=== PATIENT | female | born 1980 | race Caucasian/White ===

== ENCOUNTER 2019-08-23 02:00 | Emergency (ER) ==
[2019-08-23 02:49] LABS: Absolute Lymphocytes (CBC) 2.3 K/uL (0.7-4.9); Basophils % 0.4 % (0-1.3); Hematocrit 34.6 % (36.0-45.0); Lymphocytes % 27.6 % (15.3-44.8); MPV 7.4 fL (7.6-11.3); RBC Red Blood Cell Count 3.69 M/uL (3.86-4.86)
[2019-08-23 02:52] LABS: Protime INR 1.02
[2019-08-23 03:02] LABS: ALT/SGPT 44 U/L (12-78); Albumin 3.8 g/dL (3.4-5.0); Alkaline Phosphatase 64 U/L (45-117); BUN Blood Urea Nitrogen 8 mg/dL (7-18); Bicarbonate 24 mmol/L (21-32); Bilirubin Direct 0.1 mg/dL (0-0.2); Bilirubin Total 0.4 mg/dL (0.2-1.0); Glucose Level 93 mg/dL (74-106); Sodium Level 139 mmol/L (136-145)
[2019-08-23 03:04] LABS: AST/SGOT 28 U/L (15-37); Potassium 3.7 mmol/L (3.5-5.1)
[2019-08-23 05:52] LABS: Barbiturates NEGATIVE (NEGATIVE); Benzodiazepines NEGATIVE (NEGATIVE); Cocaine NEGATIVE (NEGATIVE); METHAMPHETAM POSITIVE (NEGATIVE); Methadone NEGATIVE (NEGATIVE); Opiates NEGATIVE (NEGATIVE); Phencyclidine NEGATIVE (NEGATIVE); THC Cannibis NEGATIVE (NEGATIVE)
--- NOTE | 2019-08-23 05:59 | ER ---
Nurse's Notes [facility] Name: Gypsy Palomares Age: 39 yrs Sex: Female : 1980 Arrival Date: 08/23/2019 Time: 02:09 Bed 17 Private MD: Diagnosis: Adverse effect of amphetamines Presentation: 08/23 02:09 Presenting complaint: Patient states: pt swallowed meth tonight. Reports that it wasn't tl2 a larger dose than she has taken before but it has been several years since the last use. Pt reports feeling like her "throat was closing and she couldn't breathe" No evidence of anaphylaxis at this time, airway is unobstructed. Pt denies SI. Pt is AOx3 and cooperative in triage. Transition of care: patient was not received from another setting of care. Onset of symptoms was August 23, 2019. Risk Assessment: Do you want to hurt yourself or someone else? Patient reports no desire to harm self or others. Initial Sepsis Screen: Does the patient meet any 2 criteria? No. Patient's initial sepsis screen is negative. Does the patient have a suspected source of infection? No. Patient's initial sepsis screen is negative. 02:09 Method Of Arrival: EMS: [facility] tl2 02:09 Acuity: MOMO 2 tl2 02:15 Care prior to arrival: IV initiated. 22 GA, in the right hand. tl2 Triage Assessment: 02:13 General: Appears in no apparent distress. uncomfortable, Behavior is cooperative, tl2 restless. Pain: Denies pain. Neuro: Level of Consciousness is awake, alert, obeys commands, Oriented to person, place, time, situation, Speech is normal. Cardiovascular: Denies chest pain. Respiratory: Airway is patent Respiratory effort is even, unlabored, Respiratory pattern is regular, symmetrical. GI: Reports nausea. Derm: Skin is pink, warm \\T\\ dry. Historical: - Allergies: 02:13 PENICILLINS; tl2 - Home Meds: 02:13 None [Active]; tl2 - PMHx: 02:13 cyst on brain; Endometrosis; tl2 - Immunization history:: Adult Immunizations up to date. - Social history:: Smoking status: Patient uses tobacco products, smokes two packs cigarettes per day. Patient uses street drugs, Methamphetamine (Meth). - Ebola Screening: : No symptoms or risks identified at this time. Screenin:16 Abuse screen: Denies threats or abuse. Nutritional screening: No deficits noted. tl2 Tuberculosis screening: No symptoms or risk factors identified. Fall Risk None identified. Assessment: 02:38 General: see triage assessment. tl2 03:22 Reassessment: pt becoming agitated. Awaiting lab results and further orders. tl2 04:50 Reassessment: Patient appears in no apparent distress at this time. Patient and/or family updated on plan of care and expected duration. Pain level reassessed. Patient is alert, oriented x 3, equal unlabored respirations, skin warm/dry/pink. 06:06 Reassessment: Patient appears in no apparent distress at this time. No changes from previously documented assessment. Patient and/or family updated on plan of care and expected duration. Pain level reassessed. Patient is alert, oriented x 3, equal unlabored respirations, skin warm/dry/pink. Vital Signs: 02:13 BP 122 / 87; Pulse 81; Resp 18; Temp 98.7; Pulse Ox 100% ; Weight 72.57 kg; Height 5 tl2 ft. 5 in. (165.10 cm); Pain 0/10; 03:22 BP 137 / 92; Pulse 101; Resp 22; Pulse Ox 100% on R/A; tl2 04:25 Pulse 101; Resp 20; Pulse Ox 98% on R/A; tl2 06:00 BP 128 / 86; Pulse 96; Resp 18; Pulse Ox 99% on R/A; wh 02:13 Body Mass Index 26.63 (72.57 kg, 165.10 cm) tl2 ED Course: 02:09 Patient arrived in ED. tl2 02:09 Boyd Gomez MD is Attending Physician. tw4 02:11 Triage completed. tl2 02:13 Arm band placed on right wrist. EKG completed in triage. Results shown to MD. tl2 02:16 Patient has correct armband on for positive identification. Placed in gown. Bed in low tl2 position. Call light in reach. Side rails up X2. 02:16 Maintain EMS IV. Dressing intact. Good blood return noted. Site clean \\T\\ dry. Gauge \\T\\ tl 2 site: 22 g R hand. 02:17 Ortiz, Padmini, RN is Primary Nurse. tl2 06:07 No provider procedures requiring assistance completed. IV discontinued, intact, bleeding controlled, No redness/swelling at site. Administered Medications: No medications were administered Outcome: 05:58 Discharge ordered by . tw4 06:08 Discharged to home ambulatory, with friend. 06:08 Condition: stable 06:08 Discharge instructions given to patient, family, Instructed on discharge instructions, follow up and referral plans. POC Demonstrated understanding of instructions, follow-up care, POC 06:09 Patient left the ED. Signatures: Padmini Ortiz RN RN tl2 Anette Shrestha Boyd Gomez MD MD tw4 Corrections: (The following items were deleted from the chart) 02:16 02:09 Care prior to arrival: None. tl2 tl2 03:34 03:22 Pulse 101bpm; Resp 22bpm; Pulse Ox 100% RA; tl2 tl2
--- NOTE | 2019-08-23 05:59 | EDPHYS ---
Physician Documentation [facility] Name: Gypsy Palomares Age: 39 yrs Sex: Female : 1980 Arrival Date: 08/23/2019 Time: 02:09 Bed 17 Private MD: ED Physician Boyd Gomez HPI: 08/23 02:33 This 39 yrs old Female presents to ER via EMS with complaints of Drug Abuse. tw4 02:33 The patient presents to the emergency department with DRUG INGESTION. Onset: The tw4 symptoms/episode began/occurred today. Associated signs and symptoms: The patient has no apparent associated signs or symptoms. The patient has not experienced similar symptoms in the past. Historical: - Allergies: 02:13 PENICILLINS; tl2 - Home Meds: 02:13 None [Active]; tl2 - PMHx: 02:13 cyst on brain; Endometrosis; tl2 - Immunization history:: Adult Immunizations up to date. - Social history:: Smoking status: Patient uses tobacco products, smokes two packs cigarettes per day. Patient uses street drugs, Methamphetamine (Meth). - Ebola Screening: : No symptoms or risks identified at this time. ROS: 02:37 Constitutional: Negative for fever, chills, and weight loss, Eyes: Negative for injury, tw4 pain, redness, and discharge, Cardiovascular: Negative for chest pain, palpitations, and edema, Respiratory: Negative for shortness of breath, cough, wheezing, and pleuritic chest pain, Abdomen/GI: Negative for abdominal pain, nausea, vomiting, diarrhea, and constipation, Back: Negative for injury and pain, MS/Extremity: Negative for injury and deformity, Skin: Negative for injury, rash, and discoloration, Neuro: Negative for headache, weakness, numbness, tingling, and seizure. Exam: 02:37 Constitutional: This is a well developed, well nourished patient who is awake, alert, tw4 and in no acute distress. Head/Face: Normocephalic, atraumatic. Chest/axilla: Normal chest wall appearance and motion. Nontender with no deformity. No lesions are appreciated. Cardiovascular: Regular rate and rhythm with a normal S1 and S2. No gallops, murmurs, or rubs. Normal PMI, no JVD. No pulse deficits. Respiratory: Lungs have equal breath sounds bilaterally, clear to auscultation and percussion. No rales, rhonchi or wheezes noted. No increased work of breathing, no retractions or nasal flaring. Abdomen/GI: Soft, non-tender, with normal bowel sounds. No distension or tympany. No guarding or rebound. No evidence of tenderness throughout. Back: No spinal tenderness. No costovertebral tenderness. Full range of motion. MS/ Extremity: Pulses equal, no cyanosis. Neurovascular intact. Full, normal range of motion. Neuro: Awake and alert, GCS 15, oriented to person, place, time, and situation. Cranial nerves II-XII grossly intact. Motor strength 5/5 in all extremities. Sensory grossly intact. Cerebellar exam normal. Normal gait. Vital Signs: 02:13 BP 122 / 87; Pulse 81; Resp 18; Temp 98.7; Pulse Ox 100% ; Weight 72.57 kg; Height 5 tl2 ft. 5 in. (165.10 cm); Pain 0/10; 03:22 BP 137 / 92; Pulse 101; Resp 22; Pulse Ox 100% on R/A; tl2 04:25 Pulse 101; Resp 20; Pulse Ox 98% on R/A; tl2 06:00 BP 128 / 86; Pulse 96; Resp 18; Pulse Ox 99% on R/A; wh 02:13 Body Mass Index 26.63 (72.57 kg, 165.10 cm) tl2 MDM: 02:09 Patient medically screened. 08/23 02:12 Order name: Acetaminophen; Complete Time: 04:22 08/23 04:22 Interpretation: Normal except: ACETA < 2.0. 08/23 02:12 Order name: Basic Metabolic Panel; Complete Time: 04:22 08/23 04:22 Interpretation: Normal except: CL 108. 08/23 02:12 Order name: CBC with Diff; Complete Time: 04:22 08/23 04:22 Interpretation: Normal except: RBC 3.69; HGB 11.7; HCT 34.6; MPV 7.4. 08/23 02:12 Order name: ETOH Level; Complete Time: 04:22 08/23 04:23 Interpretation: Within normal limits: ETOH < 3. 08/23 02:12 Order name: Hepatic Function; Complete Time: 04:22 08/23 04:23 Interpretation: Normal except: GLOB 4.2; A/G 0.9. 08/23 02:12 Order name: PT-INR; Complete Time: 04:22 08/23 04:23 Interpretation: Within normal limits: PT 12.0. 08/23 02:12 Order name: Ptt, Activated; Complete Time: 04:22 08/23 04:23 Interpretation: Within normal limits: PTT 36.7. 08/23 02:12 Order name: Salicylate; Complete Time: 04:22 08/23 04:23 Interpretation: Within normal limits: TL 5.2. 08/23 02:12 Order name: Urine Drug Screen; Complete Time: 05:56 08/23 05:56 Interpretation: Abnormal: METHAMPHETAMINE POSITIVE. 08/23 02:12 Order name: IV Saline Lock; Complete Time: 02:18 08/23 02:12 Order name: Labs collected and sent; Complete Time: 02:18 08/23 02:12 Order name: Urine Dipstick-Ancillary (obtain specimen); Complete Time: 05:47 tw4 Administered Medications: No medications were administered Disposition: 08/23/19 05:58 Discharged to Home. Impression: Adverse effect of amphetamines. - Condition is Stable. - Discharge Instructions: Stimulant Use Disorder-Methamphetamines. - Medication Reconciliation Form, Thank You Letter, Antibiotic Education, Prescription Opioid Use form. - Follow up: Private Physician; When: Upon discharge from the Emergency Department; Reason: Recheck today's complaints, Continuance of care. - Problem is new. - Symptoms have improved. Signatures: Dispatcher [employer] EDMO Padmini Ortiz RN RN tl2 Anette Shrestha Terrence, MD MD tw4 Corrections: (The following items were deleted from the chart) 06:09 05:58 08/23/2019 05:58 Discharged to Home. Impression: Adverse effect of amphetamines. wh Condition is Stable. Forms are Medication Reconciliation Form, Thank You Letter, Antibiotic Education, Prescription Opioid Use. Follow up: Private Physician; When: Upon discharge from the Emergency Department; Reason: Recheck today's complaints, Continuance of care. Problem is new. Symptoms have improved. tw4
--- NOTE | 2019-08-25 10:21 | EKG ---
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
== END 2019-08-23 06:09 | disposition home or self-care (01) ==
LOC: ER 02:00
DX: R06.02 Shortness of breath (principal); T43.625A Adverse effect of amphetamines, initial encounter; F17.210 Nicotine dependence, cigarettes, uncomplicated; Z88.0 Allergy status to penicillin
CPT/HCPCS: 36415; 80048; 80076; 80307; 80320; 80329; 85025; 85610; 85730; 93005; 99283

== ENCOUNTER 2020-01-10 13:50 | Emergency (ER) | payer SELFPAY ==
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
[2020-01-10 14:41] VITALS: BP 121/74; TEMP 97.3; O2SAT 97
== END 2020-01-10 14:36 | disposition home or self-care (01) ==
LOC: ER 13:50
DX: S20.221A Contusion of right back wall of thorax, initial encounter (principal); W50.0XXA Accidental hit or strike by another person, initial encounter; Y93.89 Activity, other specified; Y92.9 Unspecified place or not applicable; F17.210 Nicotine dependence, cigarettes, uncomplicated; Z88.0 Allergy status to penicillin
CPT/HCPCS: 99281

== ENCOUNTER 2020-03-08 14:17 | Emergency (ER) | payer SELFPAY ==
[2020-03-08] MEDS ORDERED: IBUPROFEN 400 MG TAB ONE (16:10)
[2020-03-08] MEDS ORDERED: HYDROCODONE/APAP 5/325 MG TAB ONE (16:10)
[2020-03-08] MEDS ORDERED: TETANUS & DIPHTHERIA TOX,ADULT 0.5 ML VIAL ONE (16:16)
--- NOTE | 2020-03-08 17:07 | EDPHYS ---
Physician Documentation [facility] Name: Gypsy Palomares Age: 39 yrs Sex: Female : 1980 Arrival Date: 03/08/2020 Time: 14:23 Bed 10 Private MD: Timi Hartman HPI: 03/08 15:51 This 39 yrs old Female presents to ER via Ambulatory with complaints of Wound cp Infection. Historical: - Allergies: 14:46 PENICILLINS; ll1 - PMHx: 14:46 cyst on brain; Endometrosis; Hepatitis C; ll1 - PSHx: 14:46 Tubal ligation; ll1 - Immunization history:: Flu vaccine is not up to date. - Social history:: Smoking status: Patient reports the use of cigarette tobacco products, smokes one-half pack cigarettes per day, Patient uses alcohol, admits to "couple of beers" a day. Patient/guardian denies using street drugs. ROS: 16:00 Constitutional: Negative for body aches, chills, fever. cp 16:00 Cardiovascular: Negative for chest pain. cp 16:00 Respiratory: Negative for cough, shortness of breath. 16:00 Abdomen/GI: Negative for abdominal pain. 16:00 MS/extremity: Positive for erythema, pain, swelling, tenderness, of the left great toe, Negative for paresthesias. 16:00 All other systems are negative. Exam: 16:05 Constitutional: The patient appears in no acute distress, alert, awake, non-toxic, well cp developed, well nourished. 16:05 Musculoskeletal/extremity: Extremities: grossly normal except: noted in the left great cp toe: erythema, pain, swelling, tenderness, noted superficial wound tip of left great toe with scant colored drainage, ROM: limited passive range of motion due to pain, in the left great toe, Perfusion: the extremity is normally perfused throughout, Sensation intact. Nails: intact left foot. 16:05 Skin: cellulitis, that is moderate, on the left great toe. Vital Signs: 14:47 BP 113 / 87; Pulse 89; Resp 17; Temp 98.1; Pulse Ox 97% ; Pain 7/10; ll1 MDM: 15:47 Patient medically screened. cp 16:00 Differential diagnosis: dislocation, open fracture, closed fracture, contusion, cp abrasion, cellulitis, abscess. 17:05 Data reviewed: vital signs, nurses notes, radiologic studies, plain films. 17:05 Test interpretation: by ED physician or midlevel provider: xrays of left foot negative cp for fracture. Counseling: I had a detailed discussion with the patient and/or guardian regarding: the historical points, exam findings, and any diagnostic results supporting the discharge/admit diagnosis, radiology results, the need for outpatient follow up, a family practitioner, to return to the emergency department if symptoms worsen or persist or if there are any questions or concerns that arise at home. Response to treatment: the patient's symptoms have mildly improved after treatment, and as a result, I will discharge patient. 03/08 15:51 Order name: XRAY Foot LEFT 3 View; Complete Time: 17:36 03/08 17:36 Interpretation: Reviewed report. 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 Exp: ss 10/10/2021. Lot #: [id number]. } Route: IM; Site: left deltoid; 17:11 Follow up: Response: No adverse reaction Disposition: 17:20 Chart complete. 03/09 05:46 Co-signature as Attending Physician, Timi Goldman MD I agree with the assessment and conrad plan of care. Disposition: 03/08/20 17:06 Discharged to Home. Impression: Cellulitis of left lower limb - left great toe. - Condition is Stable. - Discharge Instructions: Cellulitis, Adult. - Prescriptions for Clindamycin HCl 300 mg Oral Capsule - take 1 capsule by ORAL route every 6 hours for 10 days; 40 capsule. Tylenol- Codeine #3 300-30 mg Oral Tablet - take 2 tablets by ORAL route every 6 hours As needed; 15 tablet. Bactrim DS 800- 160 mg Oral Tablet - take 1 tablet by ORAL route every 12 hours for 10 days; 20 tablet. Naprosyn 500 mg Oral Tablet - take 1 tablet by ORAL route 2 times per day take with food; 20 tablet. - Work release form, Medication Reconciliation Form, Thank You Letter, Antibiotic Education, Prescription Opioid Use form. - Follow up: Private Physician; When: 2 - 3 days; Reason: Wound Recheck. - Problem is new. - Symptoms have improved. Signatures: Dispatcher [employer] EDMS Timi Goldman MD MD cha Smirch, Shelby, RN RN ss Timi Dyson PA PA cp Shanel Rizvi RN RN ll1 Corrections: (The following items were deleted from the chart) 03/08 17:39 17:06 03/08/2020 17:06 Discharged to Home. Impression: Cellulitis of left lower limb - ss left great toe. Condition is Stable. Forms are Medication Reconciliation Form, Thank You Letter, Antibiotic Education, Prescription Opioid Use. Follow up: Private Physician; When: 2 - 3 days; Reason: Wound Recheck. Problem is new. Symptoms have improved. cp
--- NOTE | 2020-03-08 17:07 | ER ---
Nurse's Notes [facility] Name: Gypsy Palomares Age: 39 yrs Sex: Female : 1980 Arrival Date: 03/08/2020 Time: 14:23 Bed 10 Private MD: Diagnosis: Cellulitis of left lower limb-left great toe Presentation: 03/08 14:47 Chief complaint: Patient states: Hit left foot 1st toe on concrete during incident with ll1 her dog Sunday. Abrasion to end of toe. Hit toe again today while driving. + pain and swelling. Coronavirus screen: Proceed with normal triage. Patient denies a cough. Patient denies shortness of breath or difficulty breathing. Patient denies measured and/or subjective temperature greater than 100.4F prior to today's visit. Patient denies travel on a cruise ship or to a country the [facility] currently lists as an affected area. Patient denies contact with known and/or suspected case of COVID-19. Ebola Screen: Patient denies travel to an Ebola-affected area in the 21 days before illness onset. Initial Sepsis Screen: Does the patient meet any 2 criteria? No. Patient's initial sepsis screen is negative. Does the patient have a suspected source of infection? Yes: Skin breakdown/wound. Risk Assessment: Do you want to hurt yourself or someone else? Patient reports no desire to harm self or others. Onset of symptoms was March 05, 2020. 14:47 Method Of Arrival: Ambulatory ll1 14:47 Acuity: MOMO 4 ll1 Historical: - Allergies: 14:46 PENICILLINS; ll1 - PMHx: 14:46 cyst on brain; Endometrosis; Hepatitis C; ll1 - PSHx: 14:46 Tubal ligation; ll1 - Immunization history:: Flu vaccine is not up to date. - Social history:: Smoking status: Patient reports the use of cigarette tobacco products, smokes one-half pack cigarettes per day, Patient uses alcohol, admits to "couple of beers" a day. Patient/guardian denies using street drugs. Screenin:43 Abuse screen: Denies threats or abuse. Denies injuries from another. Nutritional ss screening: No deficits noted. Tuberculosis screening: Never had TB. Fall Risk None identified. Assessment: 15:43 General: Appears in no apparent distress. comfortable, Behavior is calm, cooperative. ss Pain: Complains of pain in Left first toenail Pain currently is 7 out of 10 on a pain scale. Quality of pain is described as tender, Is continuous. Neuro: Level of Consciousness is awake, alert, obeys commands, Oriented to person, place, time, situation. Cardiovascular: Capillary refill < 3 seconds is brisk in bilateral fingers. Respiratory: Airway is patent Respiratory effort is even, unlabored, Respiratory pattern is regular, symmetrical. EENT: Nares are clear. Derm: Skin is intact, is healthy with good turgor, Skin is pink, warm \\T\\ dry. normal. Musculoskeletal: Circulation, motion, and sensation intact. Range of motion: intact in all extremities, Swelling mild swelling noted to affected area. 15:46 Injury Description: Abrasion sustained to Left first toenail is scabbed. ss Vital Signs: 14:47 BP 113 / 87; Pulse 89; Resp 17; Temp 98.1; Pulse Ox 97% ; Pain 7/10; ll1 ED Course: 14:23 Patient arrived in ED. mr 14:47 Arm band placed on Patient notified of wait time. ll1 14:49 Triage completed. ll1 15:41 Timi Dyson PA is PHCP. cp 15:41 Timi Goldman MD is Attending Physician. cp 15:43 Eveline Velarde, CRISTIANO is Primary Nurse. ss 15:43 Patient has correct armband on for positive identification. Bed in low position. Call ss light in reach. 17:11 XRAY Foot LEFT 3 View In Process Unspecified. EDMS 17:37 No provider procedures requiring assistance completed. Patient did not have IV access ss during this emergency room visit. cleansed wound with Hibiclens and saline. Dressed with kerlix, 4x4 and antibiotic ointment. Administered Medications: 16:03 Drug: HYDROcodone-acetaminophen 5 mg-325 mg 1 tabs Route: Feeding Tube; ss 16:03 Drug: Ibuprofen 800 mg Route: PO; ss 17:26 Follow up: Response: No adverse reaction ss 16:21 Drug: Tetanus-Diphtheria Toxoid Adult 0.5 ml {[employer] Expert: [employer]. Exp: ss 10/10/2021. Lot #: [id number]. } Route: IM; Site: left deltoid; 17:11 Follow up: Response: No adverse reaction ss Outcome: 17:06 Discharge ordered by . sol 17:37 Discharged to home ambulatory. ss 17:37 Condition: good 17:37 Discharge instructions given to patient, Instructed on discharge instructions, follow up and referral plans. medication usage, crutch walking, wound care, Demonstrated understanding of instructions, follow-up care, medications, crutch walking, Prescriptions given X 4. 17:39 Patient left the ED. ss Signatures: Dispatcher [employer] EDMN CisnerosReshma rice Shelby RN RN ss Timi Dyson PA PA cp Lewis, Lynsay, RN RN ll1
--- NOTE | 2020-03-08 17:20 | RAD REPORT ---
EXAM DESCRIPTION: RAD - Foot Left 3 View - 03/08/2020 5:11 pm CLINICAL HISTORY: left great toe pain Pain and swelling. COMPARISON: No comparisons FINDINGS: Moderate soft tissue swelling is seen about the great toe. No evidence of fracture.
[2020-03-08 18:02] VITALS: BP 113/87; TEMP 98.1; O2SAT 97
== END 2020-03-08 17:39 | disposition home or self-care (01) ==
LOC: ER 14:17
DX: L03.032 Cellulitis of left toe (principal); Z88.0 Allergy status to penicillin; Z23 Encounter for immunization
CPT/HCPCS: 90471; 90714; 99284

== ENCOUNTER 2020-03-16 15:24 | Emergency (ER) | payer SELFPAY ==
[2020-03-16] MEDS ORDERED: HYDROCODONE/APAP 10/325 TAB ONE (18:05)
[2020-03-16] MEDS ORDERED: LIDOCAINE 1% 20 ML MDV ONE (18:05)
[2020-03-16] MEDS ORDERED: DIAZEPAM 5 MG TABLET ONE (18:05)
[2020-03-16] MEDS ORDERED: BUPIVACAINE 0.5% PF 10 ML VIAL ONE (18:05)
--- NOTE | 2020-03-16 19:14 | ER ---
Nurse's Notes [facility] Name: Gypsy Palomares Age: 39 yrs Sex: Female : 1980 Arrival Date: 03/16/2020 Time: 15:28 Bed 16 Private MD: Diagnosis: Cellulitis of the left great toe Presentation: 03/16 15:39 Chief complaint: Patient states: L toe wound, seen and prescribed abx here in the ER. ca1 Reports regular wound care and compliance with abx treatment. Reports wound still bleeds when it hurts something and putting too much pressure on it and I can't put shoes on it. States, "I need a work note, or my boss will fire me". Coronavirus screen: Patient denies a cough. Patient denies shortness of breath or difficulty breathing. Patient denies measured and/or subjective temperature greater than 100.4F prior to today's visit. Patient denies travel on a cruise ship or to a country the [facility] currently lists as an affected area. Patient denies contact with known and/or suspected case of COVID-19. Proceed with normal triage. Ebola Screen: Patient negative for fever greater than or equal to 101.5 degrees Fahrenheit, and additional compatible Ebola Virus Disease symptoms Patient denies exposure to infectious person. Patient denies travel to an Ebola-affected area in the 21 days before illness onset. No symptoms or risks identified at this time. Initial Sepsis Screen: Does the patient meet any 2 criteria? No. Patient's initial sepsis screen is negative. Does the patient have a suspected source of infection? No. Patient's initial sepsis screen is negative. Risk Assessment: Do you want to hurt yourself or someone else? Patient reports no desire to harm self or others. Onset of symptoms was March 16, 2020. 15:39 Method Of Arrival: Ambulatory ca1 15:39 Acuity: MOMO 5 ca1 Triage Assessment: 16:49 General: Appears in no apparent distress. uncomfortable, Behavior is calm, cooperative. ks7 Pain: Complains of pain in left foot Pain currently is 7 out of 10 on a pain scale. Quality of pain is described as sharp. 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 - Social history:: Smoking status: Patient reports the use of cigarette tobacco products, smokes one-half pack cigarettes per day. Screenin:49 Abuse screen: Denies threats or abuse. Denies injuries from another. Nutritional ks7 screening: No deficits noted. Tuberculosis screening: No symptoms or risk factors identified. Fall Risk None identified. Assessment: 16:49 General: pt c/o pain to L toe, from non-healing chronic wound. . ks7 Vital Signs: 15:39 BP 112 / 74; Pulse 96; Resp 15 S; Temp 97.2(TE); Pulse Ox 99% on R/A; Weight 74.84 kg ca1 (R); Height 5 ft. 4 in. (162.56 cm) (R); 18:01 BP 106 / 64; Pulse 70; Resp 18; Pulse Ox 100% ; Pain 8/10; ks7 19:19 BP 106 / 77; Pulse 83; Resp 18; Temp 97.9; Pulse Ox 100% on R/A; Pain 0/10; ks7 19:20 Pain 0/10; ks7 19:20 Pain 0/10; ks7 19:20 Pain 0/10; ks7 19:20 Pain 0/10; ks7 15:39 Body Mass Index 28.32 (74.84 kg, 162.56 cm) ca1 ED Course: 15:28 Patient arrived in ED. mr 15:45 Triage completed. ca1 15:46 Arm band placed on right wrist. ca1 16:33 Marvel Krishnan PA is PHCP. [facility] 16:33 Jareth Tran MD is Attending Physician. [facility] 16:48 Taylor Dominique, CRISTIANO is Primary Nurse. ks7 16:49 Patient has correct armband on for positive identification. Bed in low position. Call ks7 light in reach. Side rails up X2. 16:49 No provider procedures requiring assistance completed. Patient did not have IV access ks7 during this emergency room visit. 18:19 Nurse Practitioner and/or Physician Clerk General Office to see patient. at bedside performing I \\T\\ ks7 D?. 19:13 Juan Azul MD is Referral Physician. [facility] 19:14 No provider procedures requiring assistance completed. Assist provider with nail repair ks7 of left great toe Patient tolerated. 19:21 Dressings: Band aid x 1 left foot and Left first toenail non-adherent dressing x 1 left ks7 foot and Left first toenail. Administered Medications: 17:45 Drug: Lidocaine (1 %) 20 ml {Note: administered by Marvel MORENO.} Volume: 20 ml; Route: ks7 Infiltration; 19:20 Follow up: Pain 0/10 Adult ks7 17:45 Drug: Marcaine (0.5 %) 10 ml {Note: given by JOSH Grier.} Volume: 10 ml; Route: ks7 Infiltration; 19:20 Follow up: Pain 0/10 Adult ks7 17:58 Drug: Valium 5 mg Route: PO; ks7 19:20 Follow up: Pain 0/10 Adult ks7 17:59 Drug: [place] 10 mg-325 mg 1 tabs Route: PO; ks7 19:20 Follow up: Pain 0/10 Adult ks7 Outcome: 19:14 Discharge ordered by MD. crowe 19:31 Discharged to home ambulatory. ks7 19:31 Condition: good 19:31 Discharge instructions given to patient, Instructed on discharge instructions, medication usage, Demonstrated understanding of instructions, medications. 19:34 Patient left the ED. ks7 Signatures: Marvel Krishnan PA PA jmm Blayne Roslyn Murillo, RN Taylor Turner RN RN ks7
--- NOTE | 2020-03-16 19:14 | EDPHYS ---
Physician Documentation [facility] Name: Gypsy Palomares Age: 39 yrs Sex: Female : 1980 Arrival Date: 03/16/2020 Time: 15:28 Bed 16 Private MD: ED Physician Jareth Tran HPI: 03/16 16:56 This 39 yrs old Female presents to ER via Ambulatory with complaints of Wound jmm Check. 16:56 Patient presents to ED for recheck of: cellulitis. The affected area is on the Left jmm first toenail. This is a 39 year old female with a history of hep c that presents to the ED with complaints of swelling to the left great toe. patient states she was bitten by a dog approx 2 weeks ago and seen in the ED approx 1 week ago. Discharged with abx. Patient states swelling has decreased bu the wound has continues to drain. . 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 - Social history:: Smoking status: Patient reports the use of cigarette tobacco products, smokes one-half pack cigarettes per day. ROS: 16:56 Constitutional: Negative for fever, chills, and weight loss, Cardiovascular: Negative jmm for chest pain, palpitations, and edema, Respiratory: Negative for shortness of breath, cough, wheezing, and pleuritic chest pain. 16:56 Skin: Positive for erythema. 16:56 All other systems are negative. Exam: 16:56 Constitutional: This is a well developed, well nourished patient who is awake, alert, jmm and in no acute distress. Head/Face: atraumatic. Eyes: EOMI, no conjunctival erythema appreciated ENT: Moist Mucus Membranes Neck: Trachea midline, Supple Chest/axilla: Normal chest wall appearance and motion. Cardiovascular: Regular rate and rhythm. No edema appreciated Respiratory: Normal respirations, no respiratory distress appreciated Abdomen/GI: Non distended, soft Back: Normal ROM 16:56 Skin: erythema noted to the left great toe surrounding the nail plate. no purulent drainage appreciated. 16:56 Neuro: Orientation: is normal, Mentation: is normal, Memory: is normal. 16:56 Psych: Behavior/mood is pleasant, cooperative. Vital Signs: 15:39 BP 112 / 74; Pulse 96; Resp 15 S; Temp 97.2(TE); Pulse Ox 99% on R/A; Weight 74.84 kg ca1 (R); Height 5 ft. 4 in. (162.56 cm) (R); 18:01 BP 106 / 64; Pulse 70; Resp 18; Pulse Ox 100% ; Pain 8/10; ks7 19:19 BP 106 / 77; Pulse 83; Resp 18; Temp 97.9; Pulse Ox 100% on R/A; Pain 0/10; ks7 19:20 Pain 0/10; ks7 19:20 Pain 0/10; ks7 19:20 Pain 0/10; ks7 19:20 Pain 0/10; ks7 15:39 Body Mass Index 28.32 (74.84 kg, 162.56 cm) ca1 Procedures: 19:10 Performed Nail removal. The base of the great toe was cleaned with betadine. 5 ml of [facility] marcaine 0.5%/lidocaine 1% was injected at the base of the toe and distributed bilaterally. Scissors and hemostat used to partially remove the nail plate. No, puraulent drainage appreciated. Patient tolerated the procedure well. . MDM: 16:38 Patient medically screened. [facility] 19:10 Data reviewed: vital signs, nurses notes. Counseling: I had a detailed discussion with [facility] the patient and/or guardian regarding: the historical points, exam findings, and any diagnostic results supporting the discharge/admit diagnosis, the need for outpatient follow up, to return to the emergency department if symptoms worsen or persist or if there are any questions or concerns that arise at home. ED course: Patient advised to follow up with gen surgery for wound care. Patient is otherwise advised to return to the ED. Patient is otherwise given strict return precautions. Patient understood and agrees with the plan of care. . 03/16 19:06 Order name: Wound Care; Complete Time: 19:22 [facility] Administered Medications: 17:45 Drug: Lidocaine (1 %) 20 ml {Note: administered by Marvel BECERRIL} Volume: 20 ml; Route: ks7 Infiltration; 19:20 Follow up: Pain 0/10 Adult ks7 17:45 Drug: Marcaine (0.5 %) 10 ml {Note: given by JOSH Grier.} Volume: 10 ml; Route: ks7 Infiltration; 19:20 Follow up: Pain 0/10 Adult ks7 17:58 Drug: Valium 5 mg Route: PO; ks7 19:20 Follow up: Pain 0/10 Adult ks7 17:59 Drug: [place] 10 mg-325 mg 1 tabs Route: PO; ks7 19:20 Follow up: Pain 0/10 Adult ks7 Disposition: 03/17 08:29 Co-signature as Attending Physician, Jareth Tran MD. rn Disposition: 03/16/20 19:14 Discharged to Home. Impression: Cellulitis of the left great toe. - Condition is Stable. - Discharge Instructions: Fingernail or Toenail Removal, Adult, Fingernail or Toenail Removal, Care After. - Prescriptions for Ultracet 37.5- 325 mg Oral Tablet - take 1 tablet by ORAL route every 6 hours - for up to 5 days; do not exceed 8 tablets per day.; 20 tablet. - Medication Reconciliation Form, Thank You Letter, Antibiotic Education, Prescription Opioid Use, Work release form form. - Follow up: Juan Azul MD; When: 1 - 2 days; Reason: Recheck today's complaints, Continuance of care, Re-evaluation by your physician. Signatures: Marvel Krishnan PA PA jmm Nieto, Roman, MD MD rn Roslyn Correia RN RN ca1 Songcuan, Kathleen, RN RN ks7 Corrections: (The following items were deleted from the chart) 03/16 19:34 19:14 03/16/2020 19:14 Discharged to Home. Impression: Cellulitis of the left great ks7 toe. Condition is Stable. Forms are Medication Reconciliation Form, Thank You Letter, Antibiotic Education, Prescription Opioid Use. Follow up: Juan Azul; When: 1 - 2 days; Reason: Recheck today's complaints, Continuance of care, Re-evaluation by your physician. amrita
[2020-03-17 10:22] VITALS: O2SAT 100
[2020-03-17 10:23] VITALS: BP 106/77; TEMP 97.9
== END 2020-03-16 19:34 | disposition home or self-care (01) ==
LOC: ER 15:24
PROC: 0HBRXZZ Excision of Toe Nail, External Approach (ICD-10-PCS; principal; 2020-03-16)
DX: L03.032 Cellulitis of left toe (principal); F17.210 Nicotine dependence, cigarettes, uncomplicated; Z88.0 Allergy status to penicillin
CPT/HCPCS: 99283

== ENCOUNTER 2021-02-24 20:14 | Emergency (ER) | payer SELFPAY ==
[2021-02-24] MEDS ORDERED: WATER FOR INJ,STERILE 10 ML ONE (20:39)
[2021-02-24] MEDS ORDERED: ZIPRASIDONE MESYLA 20 MG/VIAL IM ONE (20:39)
[2021-02-24 21:37] LABS: Urine Blood Negative (Negative); Urine Glucose Negative (Negative); Urine Protein Negative (Negative)
[2021-02-24 22:00] LABS: Barbiturates NEGATIVE (NEGATIVE); Benzodiazepines NEGATIVE (NEGATIVE); Cocaine NEGATIVE (NEGATIVE); METHAMPHETAM POSITIVE (NEGATIVE); Methadone NEGATIVE (NEGATIVE); Opiates NEGATIVE (NEGATIVE); Phencyclidine NEGATIVE (NEGATIVE); THC Cannibis POSITIVE (NEGATIVE)
[2021-02-25 01:04] LABS: Absolute Lymphocytes (CBC) 2.7 K/uL (0.7-4.9); Hematocrit 41.8 % (36.0-45.0); Lymphocytes % 33.2 % (15.3-44.8); RBC Red Blood Cell Count 4.37 M/uL (3.86-4.86)
[2021-02-25 01:11] LABS: Protime INR 1.06
--- NOTE | 2021-02-25 01:13 | ER ---
Nurse's Notes [facility] Name: Gypsy Palomares Age: 40 yrs Sex: Female : 1980 Arrival Date: 02/24/2021 Time: 20:20 Bed 2 Private MD: Diagnosis: Laceration without foreign body of unspecified part of neck, initial encounter;Adverse effect of amphetamines Presentation: 02/24 20:20 Chief complaint: EMS states: PD called pt found outside on the ground , had knife in ea her hand cut her left arm and neck. Superficial dorantes noted on neck and left arm. EMS accompanied by PD. Coronavirus screen: At this time, the client does not indicate any symptoms associated with coronavirus-19. Ebola Screen: No symptoms or risks identified at this time. Initial Sepsis Screen: Does the patient meet any 2 criteria? No. Patient's initial sepsis screen is negative. Does the patient have a suspected source of infection? No. Patient's initial sepsis screen is negative. Risk Assessment: Do you want to hurt yourself or someone else? Patient reports desire/thoughts of hurting themselves or someone else. Provider notified. Onset of symptoms was February 24, 2021. 20:20 Method Of Arrival: EMS: [facility] ea 20:20 Acuity: MOMO 2 ea Historical: - Allergies: 22:44 PENICILLINS; ea - PMHx: 22:44 cyst on brain; Endometrosis; Hepatitis C; ea - Immunization history:: Adult Immunizations up to date. - Social history:: Smoking status: Patient denies any tobacco usage or history of. Screenin:00 Abuse screen: Denies threats or abuse. Nutritional screening: No deficits noted. ea Tuberculosis screening: No symptoms or risk factors identified. 21:00 Fall Risk None identified. ea Assessment: 20:20 General: Appears unkempt, Behavior is agitated, combative, restless, uncooperative. ea Neuro: Level of Consciousness is awake, alert, obeys commands, Oriented to person, place, time. Cardiovascular: Patient's skin is warm and dry. Respiratory: Airway is patent Respiratory effort is even, unlabored, Respiratory pattern is regular, symmetrical. Derm: Skin is pink, warm \\T\\ dry. 21:50 Reassessment: Patient and/or family updated on plan of care and expected duration. Pain ea level reassessed. Patient is alert, oriented x 3, equal unlabored respirations, skin warm/dry/pink. Pt resting with eyes closed, respirations even and unlabored. 23:30 Reassessment: Patient and/or family updated on plan of care and expected duration. Pain ea level reassessed. Patient is alert, oriented x 3, equal unlabored respirations, skin warm/dry/pink. 02/25 00:00 Reassessment: Pt resting with eyes closed, respirations even and unlabored. Chest ea expansions even and symmetrical. No s/s of pain or discomfort noted at this time. 01:00 Reassessment: Pt resting with eyes closed, respirations even and unlabored. Chest ea expansions even and symmetrical. No s/s of pain or discomfort noted at this time. 03:00 Reassessment: Pt resting with eyes closed, respirations even and unlabored. Chest ea expansions even and symmetrical. No s/s of pain or discomfort noted at this time. 06:03 Reassessment: Patient and/or family updated on plan of care and expected duration. Pain ea level reassessed. Patient is alert, oriented x 3, equal unlabored respirations, skin warm/dry/pink. 07:35 Reassessment: pt AOx3. pt asked if she remembers why she came in to the hospital and tr6 she states she was trying to commit suicide. pt denies any SI right now. General: Appears unkempt. Pain: Complains of pain in left arm Alleviated by rest. Neuro: Level of Consciousness is awake, alert, obeys commands, Oriented to person, place, time, situation, Gait is steady, Speech is normal. Cardiovascular: No deficits noted. Respiratory: No deficits noted. GI: No deficits noted. : No deficits noted. EENT: No deficits noted. Derm: Skin is pink, warm \\T\\ dry. Musculoskeletal: No deficits noted. 07:41 Reassessment: pts boyfriend called, with pts permission, to pick pt up. message left. tr6 RN will follow up. 09:17 Reassessment: pt at nursing station on phone with boyfriend attempting to get a ride tr6 home. Vital Signs: 02/24 20:20 BP 108 / 77; Pulse 94; Resp 20; Temp 97.6; Pulse Ox 96% on R/A; Weight 68.04 kg; Height ea 5 ft. 5 in. (165.10 cm); 02/25 01:00 BP 106 / 71; Pulse 60; Resp 18; Pulse Ox 98% ; ea 02:00 BP 100 / 63; Pulse 57; Resp 16; Pulse Ox 98% ; ea 05:00 BP 107 / 56; Pulse 60; Resp 16; Pulse Ox 99% on R/A; ea 06:05 BP 110 / 71; Pulse 55; Resp 16; Temp 98; Pulse Ox 99% on R/A; ea 06:47 BP 113 / 65; Pulse 66; Resp 15; Temp 98.4(O); Pulse Ox 98% ; Pain 0/10; bs2 07:30 BP 134 / 77; Pulse 87; Resp 13; Pulse Ox 99% on R/A; tr6 02/24 20:20 Body Mass Index 24.96 (68.04 kg, 165.10 cm) ea Logan Coma Score: 02/24 22:30 Eye Response: to voice(3). Verbal Response: confused(4). Motor Response: localizes jr8 pain(5). Total: 12. 02/25 01:09 Eye Response: spontaneous(4). Verbal Response: oriented(5). Motor Response: obeys jr8 commands(6). Total: 15. ED Course: 02/24 20:20 Patient arrived in ED. mw2 20:20 Jordna Shearer PA is PHCP. jr8 20:20 Jareth Tran MD is Attending Physician. jr8 20:40 Patient has correct armband on for positive identification. Bed in low position. Call ea light in reach. Side rails up X2. 21:00 Arm band placed on right wrist. Patient placed in an exam room, on a stretcher, on ea pulse oximetry. 22:43 Triage completed. ea 02/25 01:17 Alejandra Ortiz, CRISTIANO is Primary Nurse. ea 01:17 No provider procedures requiring assistance completed. ea 07:13 COVID-19 : Document "Date of Symptom Onset" if Symptomatic. Sent. sv 07:13 Urine --Ancillary (enter results) Sent. sv Administered Medications: 02/24 20:35 Drug: Geodon (ziprasidone) 10 mg Route: IM; Site: right gluteus; ea Outcome: 02/25 01:12 Discharge ordered by MD. carrero 01:17 Discharge instructions given to patient, Instructed on discharge instructions, follow ea up and referral plans. Demonstrated understanding of instructions, follow-up care. 11:17 Patient left the ED. sv Signatures: Michaela Rockwell, RN RN Jordan Leslie PA PA jr8 Antunez, Elena, RN RN ea [place], MyKena 2 Ava Jones RN RN hal6 [facility] bs2 Corrections: (The following items were deleted from the chart) 02/24 23:16 20:20 Acuity: MOMO 3 ea ea
--- NOTE | 2021-02-25 01:13 | EDPHYS ---
Physician Documentation [facility] Name: Gypsy Palomares Age: 40 yrs Sex: Female : 1980 Arrival Date: 02/24/2021 Time: 20:20 Bed 2 Private MD: ED Physician Jareth Tran HPI: 02/24 22:28 This 40 yrs old Female presents to ER via Unassigned with complaints of OD, jr8 SI. 22:28 The patient presents to the emergency department after a known overdose, a result of jr8 recreational substance abuse. Context: Method: it is confirmed or suspected that the patient injected a substance. Associated signs and symptoms: Pertinent positives: decreased level of consciousness. Severity of symptoms: At their worst the symptoms were moderate in the emergency department the symptoms are unchanged. It is unknown whether or not the patient has had similar symptoms in the past. It is unknown whether or not the patient has recently seen a physician. 22:29 EMS called out after patient was apprehended by police. Patient had superficially cut jr8 her neck in front of police saying she wanted to commit suicide. Stated that she had also injected unknown paraphernalia earlier today. Patient uncooperative upon arrival . Historical: - Allergies: 22:44 PENICILLINS; ea - PMHx: 22:44 cyst on brain; Endometrosis; Hepatitis C; ea - Immunization history:: Adult Immunizations up to date. - Social history:: Smoking status: Patient denies any tobacco usage or history of. ROS: 22:29 Unable to obtain ROS due to patient being uncooperative. jr8 Exam: 22:30 Head/Face: Normocephalic, atraumatic. Eyes: Pupils equal round and reactive to light, jr8 extra-ocular motions intact. Lids and lashes normal. Conjunctiva and sclera are non-icteric and not injected. Cornea within normal limits. Periorbital areas with no swelling, redness, or edema. ENT: Nares patent. No nasal discharge, no septal abnormalities noted. Oropharynx with no redness, swelling, or masses, exudates, or evidence of obstruction, uvula midline. Mucous membranes Dry Neck: Trachea midline, no thyromegaly or masses palpated, and no cervical lymphadenopathy. Supple, full range of motion without nuchal rigidity, or vertebral point tenderness. No Meningismus. Cardiovascular: Tachycardic a normal S1 and S2. No gallops, murmurs, or rubs. Normal PMI, no JVD. No pulse deficits. Respiratory: Lungs have equal breath sounds bilaterally, clear to auscultation and percussion. No rales, rhonchi or wheezes noted. No increased work of breathing, no retractions or nasal flaring. Abdomen/GI: Soft, non-tender, with normal bowel sounds. No distension or tympany. No guarding or rebound. No evidence of tenderness throughout. Skin: Warm, dry with normal turgor. Normal color with no rashes, no lesions, and no evidence of cellulitis. 3 cm laceration noted to left lateral neck MS/ Extremity: Pulses equal, no cyanosis. Neurovascular intact. Full, normal range of motion. 22:30 Neuro: Orientation: to person, Mentation: responsive to voice unable to follow commands, Memory: unable to test, Cranial nerves: extraocular movements are intact, Speech is clear and appropriate. Tongue strength is normal, Motor: moves all fours, Sensation: no obvious gross deficits, seizure activity, is not displayed by the patient, Abnormal movements: there are no abnormal movements. 02/25 01:09 Neuro: Awake and alert, GCS 15, oriented to person, place, time, and situation. jr8 Cranial nerves II-XII grossly intact. Motor strength 5/5 in all extremities. Sensory grossly intact. Cerebellar exam normal. Normal gait. Psych: Awake, alert, with orientation to person, place and time. Behavior, mood, and affect are within normal limits. Vital Signs: 02/24 20:20 BP 108 / 77; Pulse 94; Resp 20; Temp 97.6; Pulse Ox 96% on R/A; Weight 68.04 kg; Height ea 5 ft. 5 in. (165.10 cm); 02/25 01:00 BP 106 / 71; Pulse 60; Resp 18; Pulse Ox 98% ; ea 02:00 BP 100 / 63; Pulse 57; Resp 16; Pulse Ox 98% ; ea 05:00 BP 107 / 56; Pulse 60; Resp 16; Pulse Ox 99% on R/A; ea 06:05 BP 110 / 71; Pulse 55; Resp 16; Temp 98; Pulse Ox 99% on R/A; ea 06:47 BP 113 / 65; Pulse 66; Resp 15; Temp 98.4(O); Pulse Ox 98% ; Pain 0/10; bs2 07:30 BP 134 / 77; Pulse 87; Resp 13; Pulse Ox 99% on R/A; tr6 02/24 20:20 Body Mass Index 24.96 (68.04 kg, 165.10 cm) ea [place]con Coma Score: 02/24 22:30 Eye Response: to voice(3). Verbal Response: confused(4). Motor Response: localizes jr8 pain(5). Total: 12. 02/25 01:09 Eye Response: spontaneous(4). Verbal Response: oriented(5). Motor Response: obeys jr8 commands(6). Total: 15. Laceration: 01:09 Wound Repair of 3cm ( 1.2in ) subcutaneous laceration to neck. Linear shaped.. Minimal jr8 bleeding noted.. Distal neuro/vascular/tendon intact. Wound prep: Moderate cleansing with hibiclenz, Wound irrigation with saline, Copious irrigation. Skin closed with 1 thin layer Adhesive skin closure using Dermabond. Patient tolerated well. MDM: 02/24 20:20 Patient medically screened. 8 02/25 01:08 Data reviewed: vital signs, nurses notes, lab test result(s), EKG, and as a result, I [facility] will discharge patient. Data interpreted: Pulse oximetry: on room air is 96 %. Interpretation: normal. Counseling: I had a detailed discussion with the patient and/or guardian regarding: the historical points, exam findings, and any diagnostic results supporting the discharge/admit diagnosis, lab results. 01:09 ED course: Patient doing much better. A\\T\\O x4. GCS 15. Stated that she broke up with her jr8 boyfriend tonight causing her to have a breakdown. Has had this in past but never to this extent. Patient denies wanting to hurt herself or others. Patient can answer all questions appropriately and is of sound mind at this time. Safe to be discharged home and knows to call 911 or come back if she were to feel worse. 02/24 20:20 Order name: Acetaminophen; Complete Time: 13:11 jr8 02/24 20:20 Order name: Basic Metabolic Panel; Complete Time: 13:11 jr8 02/24 20:20 Order name: CBC with Diff; Complete Time: 13:11 02/24 20:20 Order name: ETOH Level; Complete Time: 22:08 02/24 20:20 Order name: Hepatic Function; Complete Time: 13:11 02/24 20:20 Order name: PT-INR; Complete Time: 13:11 02/24 20:20 Order name: Ptt, Activated; Complete Time: 13:11 02/24 20:20 Order name: Salicylate; Complete Time: 22:08 02/24 20:20 Order name: Urine Drug Screen; Complete Time: 22:30 02/24 21:31 Order name: COVID-19 : Document "Date of Symptom Onset" if Symptomatic. bb 02/24 21:37 Order name: Urine Dipstick-Ancillary; Complete Time: 22:08 EDUT 02/24 21:46 Order name: Urine --Ancillary (enter results) 2 02/24 21:46 Order name: Urine --Ancillary; Complete Time: 22:08 [facility] 02/24 20:20 Order name: EKG; Complete Time: 20:21 02/24 20:20 Order name: EKG - Nurse/Tech; Complete Time: 22:39 02/24 20:20 Order name: IV Saline Lock; Complete Time: 22:39 02/24 20:20 Order name: Labs collected and sent; Complete Time: 21:51 02/24 20:20 Order name: Suicide Precautions; Complete Time: 21:51 02/24 20:20 Order name: Suicide Screening ([place]); Complete Time: 09:47 02/24 20:20 Order name: Urine Dipstick-Ancillary (obtain specimen); Complete Time: 22:39 02/24 20:20 Order name: Urine Test (obtain specimen); Complete Time: 22:39 02/24 22:46 Order name: SARS-COV-2 RT PCR; Complete Time: 23:02 EDUT 02/25 01:05 Order name: CBC Smear Scan; Complete Time: 13:11 EDMS Administered Medications: 02/24 20:35 Drug: Geodon (ziprasidone) 10 mg Route: IM; Site: right gluteus; ea Disposition: 02/25 19:36 Co-signature as Attending Physician, Jareth Tran MD. rn Disposition Summary: 02/25/21 01:12 Discharge Ordered Location: Home jr8 Problem: new jr8 Symptoms: have improved jr8 Condition: Stable jr8 Diagnosis - Laceration without foreign body of unspecified part of neck, initial encounter jr8 - Adverse effect of amphetamines jr8 Followup: jr8 - With: Private Physician - When: 1 week - Reason: Wound Recheck, Recheck today's complaints, Continuance of care, Re-evaluation by your physician Discharge Instructions: - Discharge Summary Sheet jr8 - Sutures, [place], or Adhesive Wound Closure jr8 - Illegal Drug Use Information, Adult jr8 Forms: - Medication Reconciliation Form jr8 - Thank You Letter jr8 - Antibiotic Education jr8 - Prescription Opioid Use jr8 Signatures: Dispatcher [employer] [facility] Jareth Tran MD MD rn Roszak, Josh, PA PA jr8 Alejandra Ortiz RN RN ea Corrections: (The following items were deleted from the chart) 02/24 21:46 21:31 CORONAVIRUS ordered. [facility] 02/25 01:08 02/24 22:30 Head/Face: Normocephalic, atraumatic. Eyes: Pupils equal round and reactive jr8 to light, extra-ocular motions intact. Lids and lashes normal. Conjunctiva and sclera are non-icteric and not injected. Cornea within normal limits. Periorbital areas with no swelling, redness, or edema. ENT: Nares patent. No nasal discharge, no septal abnormalities noted. Oropharynx with no redness, swelling, or masses, exudates, or evidence of obstruction, uvula midline. Mucous membranes Dry Neck: Trachea midline, no thyromegaly or masses palpated, and no cervical lymphadenopathy. Supple, full range of motion without nuchal rigidity, or vertebral point tenderness. No Meningismus. Cardiovascular: Tachycardic a normal S1 and S2. No gallops, murmurs, or rubs. Normal PMI, no JVD. No pulse deficits. Respiratory: Lungs have equal breath sounds bilaterally, clear to auscultation and percussion. No rales, rhonchi or wheezes noted. No increased work of breathing, no retractions or nasal flaring. Abdomen/GI: Soft, non-tender, with normal bowel sounds. No distension or tympany. No guarding or rebound. No evidence of tenderness throughout. Skin: Warm, dry with normal turgor. Normal color with no rashes, no lesions, and no evidence of cellulitis. MS/ Extremity: Pulses equal, no cyanosis. Neurovascular intact. Full, normal range of motion. jr8
[2021-02-25] MEDS ORDERED: DERMABOND SKIN ADHESIVE TOP ONE (01:18)
[2021-02-25 01:33] LABS: ALT/SGPT 29 U/L (12-78); AST/SGOT 22 U/L (15-37); Albumin 3.3 g/dL (3.4-5.0); Alkaline Phosphatase 54 U/L (45-117); BUN Blood Urea Nitrogen 7 mg/dL (7-18); Bicarbonate 22 mmol/L (21-32); Bilirubin Direct < 0.1 mg/dL (0-0.2); Bilirubin Total 0.2 mg/dL (0.2-1.0); Glucose Level 77 mg/dL (74-106); Potassium 3.3 mmol/L (3.5-5.1); Protein, Total 7.2 g/dL (6.4-8.2); Sodium Level 144 mmol/L (136-145)
[2021-02-25 01:41] LABS: Blood Morphology Comment NOT SEEN (NOT SEEN); Platelet Estimate ADEQ; White Blood Cell Scan OK (OK)
[2021-02-25 11:29] VITALS: TEMP 98.4
[2021-02-25 11:30] VITALS: BP 134/77; O2SAT 99
--- NOTE | 2021-02-26 10:29 | EKG ---
Test Date: 2021-02-24 Test Time: 21:59:48 Injection Machine Operator: RAYMUNDO MEASUREMENT RESULTS: Intervals: Rate: 82 GA: 146 QRSD: 94 QT: 408 QTc: 476 [place]: P: 79 GA: 146 QRS: 70 T: 76 INTERPRETIVE STATEMENTS: Sinus rhythm with marked sinus arrhythmia with junctional escape complexes Otherwise normal ECG Compared to ECG 08/23/2019 02:05:46 Junctional escape complex(es) now present Electronically Signed On 02-26-21 10:25:52 CDT by Matthew Davis
== END 2021-02-25 11:17 | disposition home or self-care (01) ==
LOC: ER 20:14
PROC: 0HQ4XZZ Repair Neck Skin, External Approach (ICD-10-PCS; principal; 2021-02-25)
DX: S11.91XA Laceration without foreign body of unspecified part of neck, initial encounter (principal); T43.625A Adverse effect of amphetamines, initial encounter; Z88.0 Allergy status to penicillin
CPT/HCPCS: 36415; 80048; 80076; 80307; 80320; 80329; 81003; 81025; 85025; 85610; 85730; 93005; 96372; 99285; J3486; U0003

== ENCOUNTER 2021-04-28 11:59 | Emergency (ER) | payer SELFPAY | END 2021-04-28 13:20 | disposition left against medical advice (07) | LOC: ER 11:59 | DX: Z02.9 Encounter for administrative examinations, unspecified (principal) ==

== ENCOUNTER 2021-04-29 07:10 | Emergency (ER) | payer SELFPAY ==
--- NOTE | 2021-04-29 09:01 | RAD REPORT ---
EXAM DESCRIPTION: RAD - Chest Pa And Lat (2 Views) - 04/29/2021 7:51 am CLINICAL HISTORY: COUGH Chest pain. COMPARISON: No comparisons FINDINGS: The lungs are clear. The heart is normal in size. No displaced fractures. IMPRESSION: No acute or concerning finding suspected.
[2021-04-29 10:01] LABS: SARS-COV-2 RT PCR POSITIVE (NEGATIVE)
--- NOTE | 2021-04-29 10:02 | EDPHYS ---
Physician Documentation [facility] Name: Gypsy Palomares Age: 40 yrs Sex: Female : 1980 Arrival Date: 04/29/2021 Time: 07:11 Bed 12 Private MD: ED Physician Molly Nathan HPI: 04/29 07:40 This 40 yrs old Female presents to ER via Ambulatory with complaints of r/o kb covid. 07:40 The patient or guardian reports cough, that is intermittent, described as mild, kb difficulty breathing, flu symptoms, myalgias. Onset: The symptoms/episode began/occurred 1 week(s) ago. Severity of symptoms: At their worst the symptoms were moderate, in the emergency department the symptoms are unchanged. Modifying factors: The symptoms are alleviated by nothing, the symptoms are aggravated by nothing. Associated signs and symptoms: Pertinent positives: diarrhea, Pertinent negatives: chest pain, ear ache, fever, nausea. The patient has not experienced similar symptoms in the past. The patient has not recently seen a physician. NEWSPAPER JOURNALIST: 07:19 LMP 04/29/2021 aa5 Historical: - Allergies: 07:12 PENICILLINS; aa5 - PMHx: 07:12 cyst on brain; Endometrosis; Hepatitis C; aa5 - Immunization history:: Adult Immunizations unknown. - Social history:: Smoking status: unknown. ROS: 07:36 Cardiovascular: Negative for chest pain, palpitations, and edema. kb 07:36 Constitutional: Positive for body aches, fatigue, malaise. 07:36 Respiratory: Positive for cough, shortness of breath. 07:36 Abdomen/GI: Positive for diarrhea, Negative for abdominal pain, nausea, vomiting. 07:36 All other systems are negative. Exam: 07:38 Constitutional: This is a well developed, well nourished patient who is awake, alert, kb and in no acute distress. Head/Face: Normocephalic, atraumatic. ENT: Moist Mucous membranes Cardiovascular: Regular rate and rhythm with a normal S1 and S2. No gallops, murmurs, or rubs. No pulse deficits. Abdomen/GI: Soft, non-tender. No distention Skin: Warm, dry with normal turgor. Normal color. MS/ Extremity: Pulses equal, no cyanosis. Neurovascular intact. Full, normal range of motion. Neuro: Awake and alert, GCS 15, oriented to person, place, time, and situation. Moves all extremities. Normal gait. Psych: Awake, alert, with orientation to person, place and time. Behavior, mood, and affect are within normal limits. 07:38 Respiratory: the patient does not display signs of respiratory distress, Respirations: normal, Breath sounds: rhonchi, that are mild, are scattered. Vital Signs: 07:12 BP 143 / 80; Pulse 95; Resp 18 S; Temp 98.4(O); Pulse Ox 100% on R/A; Weight 74.84 kg aa5 (R); Height 5 ft. 4 in. (162.56 cm) (R); 10:10 BP 141 / 82; Pulse 91; Resp 16; Temp 98.5; Pulse Ox 100% ; bp 07:12 Body Mass Index 28.32 (74.84 kg, 162.56 cm) aa5 MDM: 07:11 Patient medically screened. kb 07:37 Data reviewed: vital signs, nurses notes. Data interpreted: Pulse oximetry: on room air kb is 100 %. Interpretation: normal. 10:02 Counseling: I had a detailed discussion with the patient and/or guardian regarding: the kb historical points, exam findings, and any diagnostic results supporting the discharge/admit diagnosis, lab results, radiology results, the need for outpatient follow up, a family practitioner, to return to the emergency department if symptoms worsen or persist or if there are any questions or concerns that arise at home. 04/29 07:20 Order name: Flu kb 04/29 07:20 Order name: COVID-19 : Document "Date of Symptom Onset" if Symptomatic. kb 04/29 07:20 Order name: Chest Pa And Lat (2 Views) XRAY; Complete Time: 09:05 kb 04/29 10:01 Order name: COVID-19/FLU A+B; Complete Time: 10:01 EDMS Administered Medications: No medications were administered Disposition Summary: 04/29/21 10:02 Discharge Ordered Location: Home kb Condition: Stable kb Diagnosis - Coronavirus infection, unspecified kb Followup: kb - With: Emergency Department - When: As needed - Reason: Worsening of condition Followup: kb - With: Private Physician - When: 2 - 3 days - Reason: Recheck today's complaints, Continuance of care, Re-evaluation by your physician Discharge Instructions: - Discharge Summary Sheet kb - Viral Respiratory Infection, [id number] kb - COVID-19 kb Forms: - Medication Reconciliation Form kb - Thank You Letter kb - Antibiotic Education kb - Prescription Opioid Use kb Addendum: 05/02/2021 19:03 Co-signature as Attending Physician, Molly olivarez Signatures: Dispatcher [employer] EDAlma Rosa Colon, OTF-Maggie VANESSA-Marvin Parrish MD MD pkl Ave Jean, RN RN aa5 Mk Hugo, RN RN bp Corrections: (The following items were deleted from the chart) 04/29 09:00 07:21 Influenza Screen (A ordered. EDMS EDMS 09:00 07:21 CORONAVIRUS ordered. EDMS EDMS
--- NOTE | 2021-04-29 10:02 | ER ---
Nurse's Notes [facility] Name: Gypsy Palomares Age: 40 yrs Sex: Female : 1980 Arrival Date: 04/29/2021 Time: 07:11 Bed 12 Private MD: Diagnosis: Coronavirus infection, unspecified Presentation: 04/29 07:12 Chief complaint: Patient states: "I was in direct contact with my roommate that had aa5 COVID-19". Pt states "everything hurts". Pt reports SOB, pain with inspiration, and diarrhea. Denies vomiting. Coronavirus screen: cough unrelated to allergies, shortness of breath. Ebola Screen: Patient negative for fever greater than or equal to 101.5 degrees Fahrenheit, and additional compatible Ebola Virus Disease symptoms. Initial Sepsis Screen: Does the patient meet any 2 criteria? HR > 90 bpm. Does the patient have a suspected source of infection? Yes:. Risk Assessment: Do you want to hurt yourself or someone else? Patient reports no desire to harm self or others. Onset of symptoms was March 2021. 07:12 Method Of Arrival: Ambulatory aa5 07:12 Acuity: MOMO 3 aa5 Triage Assessment: 07:15 General: Appears in no apparent distress. comfortable, obese, Behavior is cooperative, bp appropriate for age, anxious. Pain: Denies pain. EENT: No deficits noted. Neuro: No deficits noted. Cardiovascular: No deficits noted. Respiratory: No deficits noted. GI: No signs and/or symptoms were reported involving the gastrointestinal system. : No signs and/or symptoms were reported regarding the genitourinary system. Derm: No deficits noted. Musculoskeletal: No deficits noted. 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 - Social history:: Smoking status: unknown. Screenin:50 Abuse screen: Denies threats or abuse. Denies injuries from another. Nutritional bp screening: No deficits noted. Tuberculosis screening: No symptoms or risk factors identified. Fall Risk None identified. Assessment: 07:15 General: SEE TRIAGE NOTE. bp 10:09 Reassessment: PT D/C HOME AMBULATORY, DX WITH SARS COV+. bp Vital Signs: 07:12 BP 143 / 80; Pulse 95; Resp 18 S; Temp 98.4(O); Pulse Ox 100% on R/A; Weight 74.84 kg aa5 (R); Height 5 ft. 4 in. (162.56 cm) (R); 10:10 BP 141 / 82; Pulse 91; Resp 16; Temp 98.5; Pulse Ox 100% ; bp 07:12 Body Mass Index 28.32 (74.84 kg, 162.56 cm) aa5 ED Course: 07:11 Patient arrived in ED. as 07:11 Alma Rosa Emery FNP-C is PHCP. kb 07:11 Marvin Fuentes MD is Attending Physician. kb 07:12 Arm band placed on. aa5 07:19 Triage completed. aa5 07:48 Mk Hugo, RN is Primary Nurse. bp 07:50 Chest Pa And Lat (2 Views) XRAY In Process Unspecified. EDMS 08:00 Patient has correct armband on for positive identification. Bed in low position. Call bp light in reach. Side rails up X2. 09:32 Attending Physician role handed off by Marvin Fuentes MD ma2 09:32 Molly Nathan MD is Attending Physician. ma2 10:09 No provider procedures requiring assistance completed. Patient did not have IV access bp during this emergency room visit. Administered Medications: No medications were administered Outcome: 10:02 Discharge ordered by . kb 10:09 Discharged to home ambulatory. bp 10:09 Condition: stable 10:09 Discharge instructions given to patient, Instructed on discharge instructions, follow up and referral plans. Demonstrated understanding of instructions, follow-up care. 10:11 Patient left the ED. bp Signatures: Dispatcher [employer] EDMO Alma Rosa Emery FNP-C FNP-Angélica Concepcion Audri, RN RN [facility] Mk Hugo, RN RN bp Molly Nathan MD MD ma2
[2021-04-29 10:18] VITALS: O2SAT 100
[2021-04-29 10:19] VITALS: BP 141/82; TEMP 98.5
== END 2021-04-29 10:11 | disposition home or self-care (01) ==
LOC: ER 07:10
DX: U07.1 COVID-19 (principal); Z88.0 Allergy status to penicillin
CPT/HCPCS: 0240U; 71046; 99283